=== PATIENT | female | born 1980 | race Two or more races ===

== ENCOUNTER 2016-10-17 09:40 | Emergency (ER) | payer OTHER ==
[~2016-10-17] VITALS: Ht 162.6 cm; Wt 63.5 kg
[2016-10-17 09:45] VITALS: BP 122/73
[2016-10-17] MEDS ORDERED: HYDROcodone/APAP 5/325MG 1 TAB TABLET PO ONE (10:15)
[2016-10-17] MEDS ORDERED: NEOMY/BACITR/POLYMYXIN OINT PACKET. TP ONE (10:15)
[2016-10-17] MEDS ORDERED: DIPHTH,PERTUSS(ACELL),TET TOX 0.5 ML DISP.SYRIN. VAX IM ONE (10:15)
--- NOTE | 2016-10-17 10:20 | PHYS DOC ---
Past Medical History Past Medical History: Gallstones Past Surgical History: Other Additional Past Surgical Histo: gallstone removal Alcohol Use: Occasionally Drug Use: None Adult General Chief Complaint Chief Complaint: BURN/SMOKE INHALATION HPI HPI Patient is a 36 year old female presents emergency department stating that she was burned her left forearm today while she was at work. She has not sure what was coming off of the exhaust area at work that it came down on the chills and hit her left forearm and hand. Patient states that she turned around and fell and injured her left knee. Patient has been able to ambulate without difficulty. She does state that her tetanus shot was approximately 5 years ago. Patient denies any numbness or tingling to her hands or to her foot. Patient does have first-degree moura noted on her left forearm and the back side of her hand. No blistering noted. Patient does have bruising noted on the left knee area with tenderness and discomfort noted patient states that she does have arthritic problems and takes hydrocodone. Review of Systems Review of Systems Constitutional: Denies fever or chills [] Eyes: Denies change in visual acuity, redness, or eye pain [] HENT: Denies nasal congestion or sore throat [] Respiratory: Denies cough or shortness of breath [] Cardiovascular: No additional information not addressed in HPI [] GI: Denies abdominal pain, nausea, vomiting, bloody stools or diarrhea [] : Denies dysuria or hematuria. Musculoskeletal: Denies back pain, complaint of left knee pain Integument: Denies rash or skin lesions. Complaint of moura to the left forearm and hand. Neurologic: Denies headache, focal weakness or sensory changes [] Endocrine: Denies polyuria or polydipsia [] Current Medications Current Medications Current Medications Medications (Trade) Dose Ordered Sig/Rehana Start Time Stop Time Status Last Admin Dose Admin Acetaminophen/ Hydrocodone Bitart (Lortab 5/325) 2 tab 1X ONCE 10/17/16 10:15 10/17/16 10:16 DC 10/17/16 10:29 2 TAB Diphtheria/ Tetanus/Acell Pertussis (Boostrix) 0.5 ml ONCE ONCE 10/17/16 10:15 10/17/16 10:16 DC 10/17/16 10:30 0.5 ML Neomycin/ Polymyxin/ Bacitracin (Triple Antibiotic Ointment) 6 pkt 1X ONCE 7/30/17 10:15 10/17/16 10:16 DC 10/17/16 10:29 6 PKT Allergies Allergies Allergies Coded Allergies Type Severity Reaction Last Updated Verified No Known Drug Allergies 10/13/13 No Physical Exam Physical Exam Constitutional: Well developed, well nourished, no acute distress, non-toxic appearance. [] HENT: Normocephalic, atraumatic, bilateral external ears normal, oropharynx moist, no oral exudates, nose normal. [] Eyes: PERRLA, EOMI, conjunctiva normal, no discharge. [] Neck: Normal range of motion, no tenderness, supple, no stridor. [] Cardiovascular:Heart rate regular rhythm, no murmur [] Lungs & Thorax: Bilateral breath sounds clear to auscultation [] Skin: Warm, dry, no erythema, no rash. Left forearm with first-degree moura noted sporadically on the forearm. Patient with first degree moura noted over the MIP joints 2 through 5. No blistering noted. Left hand with less than 2 second cap refill. Radial pulses 2+. Back: No tenderness Extremities: Left knee tenderness, bruising noted over the left knee as well as abrasions. No cyanosis, no clubbing, ROM intact, no edema. Peripheral pulses 2+ cap refill brisk less than 2 seconds. Patient is able to move the knee with no difficulty. Neurologic: Alert and oriented X 3, normal motor function, normal sensory function, no focal deficits noted. [] Psychologic: Affect normal, judgement normal, mood normal. [] Current Patient Data Vital Signs Vital Signs Date Time Temp Pulse Resp B/P (MAP) Pulse Ox O2 Delivery O2 Flow Rate FiO2 10/17/16 10:29 16 10/17/16 09:45 98.3 75 122/73 (89) 98 Room Air 98.3 EKG EKG [] Radiology/Procedures Radiology/Procedures [][facility] [address] [place], [place] [id number] IMAGING REPORT Signed PATIENT: ANDRES HERNANDEZ ACCOUNT: [id number] : 1980 LOCATION: ER AGE: 36 SEX: F EXAM STATUS: PRE ER ORD. PHYSICIAN: JOSE DAVID JARAMILLO APRN REASON: left knee pain with bruising after falling PROCEDURE: KNEE LEFT 4V 4 view study of the left knee Indications: Left knee pain and swelling and bruising after slipping and falling onto left knee. Findings: No acute fracture or dislocation or osteolytic process is seen. There is no significant swelling of the suprapatellar bursa to indicate a joint effusion radiographically. The patella is normally aligned. No significant arthritic change is seen. IMPRESSION: No acute osseous abnormality. DICTATED and SIGNED BY: RG ARRIAGA MD DATE: 10/17/16 1032 CC: JOSE DAVID JARAMILLO APRN; [address] ~ Course & Med Decision Making Course & Med Decision Making Pertinent Labs and Imaging studies reviewed. (See chart for details) Patient will be updated with a tetanus immunization here in the emergency department. She'll be provided with hydrocodone for pain and discomfort and she states she has not taken her hydrocodone since last night. Patient will also have an x-ray completed of the left knee. X-rays are negative for any bony abnormalities. Patient will be discharged home with recommendations to clean the forearm with soap and water and apply antibiotic ointment twice a day. Patient has hydrocodone at home in which she can take for pain and discomfort. Also recommended continue to use her meloxicam in which she has at home. Hours with food. Recommended ice packs on 20 minutes off 20 minutes several times a day. Recommended ice packs to the left knee as well. Patient will be provided with an Arturo wrap for the left knee. Recommended following up with work comp for any further issues. Patient will be discharged home in stable condition signs and symptoms to return back to emergency department been provided. [] Dragon Disclaimer Dragon Disclaimer This electronic medical record was generated, in whole or in part, using a voice recognition dictation system. Departure Departure Impression: Primary Impression: First degree burn of left forearm Additional Impression: Contusion of left knee Disposition: HOME, SELF-CARE Condition: STABLE Referrals: [address] (PCP) Patient Instructions: Burn Care, [id number], Contusion, [id number] Additional Instructions: In regards to your burn keep the area clean and dry. Clean the site twice daily with soap and water and apply antibiotic ointment. For the left knee ice packs on 20 minutes off 20 minutes several times a day. Elevation as much as possible. Arturo wrap for the next 5-7 days. You have hydrocodone at home in which she can take for pain and discomfort. He may continue to use her meloxicam at you have at home for pain and discomfort as well. Follow-up with work comp physician in the next week. Return back to emergency prior signs symptoms of become worse. Problem Qualifiers JOSE DAVID JARAMILLO APRN Oct 17, 2016 10:20
--- NOTE | 2016-10-17 10:36 | RAD ---
4 view study of the left knee Indications: Left knee pain and swelling and bruising after slipping and falling onto left knee. Findings: No acute fracture or dislocation or osteolytic process is seen. There is no significant swelling of the suprapatellar bursa to indicate a joint effusion radiographically. The patella is normally aligned. No significant arthritic change is seen. IMPRESSION: No acute osseous abnormality.
== END 2016-10-17 10:59 | disposition home or self-care (01) ==
LOC: ER 09:40
DX: T22.112A Burn of first degree of left forearm, initial encounter (principal); S80.02XA Contusion of left knee, initial encounter; X30.XXXA Exposure to excessive natural heat, initial encounter; Y93.89 Activity, other specified; Y99.0 Civilian activity done for income or pay; Y92.69 Other specified industrial and construction area as the place of occurrence of the external cause
CPT/HCPCS: 16000; 16020; 73564; 90471; 90715; 99284-25; 99285-25

== ENCOUNTER 2017-03-09 23:17 | Emergency (ER) | payer OTHER ==
[~2017-03-09] VITALS: Ht 162.6 cm; Wt 67.1 kg
--- NOTE | 2017-03-09 23:40 | PHYS DOC ---
Past Medical History Past Medical History: Gallstones, Ovarian Cyst Past Surgical History: Cholecystectomy, Tubal ligation Alcohol Use: Occasionally Drug Use: None Adult General Chief Complaint Chief Complaint: ABDOMINAL PAIN HPI HPI Patient is a 37 year old female presenting to the emergency department for evaluation of severe left lower quadrant pain that worsened suddenly several hours prior to arrival. She has been dealing with this pain for at least 3 weeks and says that she was seen at [facility] last Tuesday. She says that she has some diarrhea but no fevers chills nausea vomiting dysuria hematuria vaginal bleeding or vaginal discharge. She reports getting both a CT scan and ultrasound and it revealed a large cyst on the right and 2 cyst on the left as well that were smaller. 03/03/2017 2 02/28/2017 HYDROCODON-ACETAMINOPH 7.5-325 20.0 5 RY GED [id number] [facility] ([id number]) 0 30.0 Medicaid [place] 02/14/2017 1 02/14/2017 HYDROCODON-ACETAMINOPH 7.5-325 90.0 23 SI [place]LEST[place] [id number] [facility] ([id number]) 0 29.348 Comm Ins [place] 01/24/2017 1 01/24/2017 HYDROCODON-ACETAMINOPH 7.5-325 90.0 23 SI CELESTINO [id number] [facility] ([id number]) 0 29.348 [place] 01/17/2017 3 01/17/2017 HYDROCODON-ACETAMINOPHEN 5-325 7.0 30 MA TIN [id number] [facility] ([id number]) 0 1.167 Comm [facility] 01/13/2017 3 01/13/2017 HYDROCODON-ACETAMINOPHEN 5-325 10.0 3 BR HOW [id number] [facility] (8285) 0 16.667 [place] 12/21/2016 1 12/21/2016 HYDROCODON-ACETAMINOPH 7.5-325 120.0 30 SI CELESTINO [id number] [facility] ([id number]) 0 30.0 [place] 11/25/2016 1 11/25/2016 HYDROCODON-ACETAMINOPH 7.5-325 120.0 30 SI CELESTINO [id number] [facility] ([id number]) 0 30.0 Comm [facility] Review of Systems Review of Systems Constitutional: Denies fever or chills [] Eyes: Denies change in visual acuity, redness, or eye pain [] HENT: Denies nasal congestion or sore throat [] Respiratory: Denies cough or shortness of breath [] Cardiovascular: No additional information not addressed in HPI [] GI: + abdominal pain. No nausea, vomiting, bloody stools. + diarrhea [] : Denies dysuria or hematuria [] Musculoskeletal: Denies back pain or joint pain [] Integument: Denies rash or skin lesions [] Neurologic: Denies headache, focal weakness or sensory changes [] All other systems were reviewed and found to be within normal limits, except as documented in this note. Current Medications Current Medications Current Medications Medications (Trade) Dose Ordered Sig/Rehana Start Time Stop Time Status Last Admin Dose Admin Fentanyl Citrate (Fentanyl 2ml Vial) 75 mcg 1X ONCE 03/10/17 00:00 03/10/17 00:01 DC 03/10/17 00:17 75 MCG Ketorolac Tromethamine (Toradol) 15 mg 1X ONCE 03/10/17 00:00 03/10/17 00:01 DC 03/10/17 00:17 15 MG Morphine Sulfate 5 mg 1X ONCE 03/10/17 02:15 03/10/17 02:16 DC 03/10/17 02:10 5 MG Ondansetron HCl (Zofran) 4 mg 1X ONCE 03/10/17 00:00 03/10/17 00:01 DC 03/10/17 00:16 4 MG Allergies Allergies Allergies Coded Allergies Type Severity Reaction Last Updated Verified No Known Drug Allergies 10/13/13 No Physical Exam Physical Exam Constitutional: Well developed, well nourished, no acute distress, non-toxic appearance. [] HENT: Normocephalic, atraumatic, bilateral external ears normal, oropharynx moist, no oral exudates, nose normal. [] Eyes: PERRLA, EOMI, conjunctiva normal, no discharge. [] Neck: Normal range of motion, no tenderness, supple, no stridor. [] Cardiovascular:Heart rate regular rhythm, no murmur [] Lungs & Thorax: Bilateral breath sounds clear to auscultation [] Abdomen: Bowel sounds normal, soft, positive left lower quadrant tenderness, tenderness appears to be more so over the left adnexa, no masses, no pulsatile masses. [] Skin: Warm, dry, no erythema, no rash. [] Back: No tenderness, no CVA tenderness. [] Extremities: No tenderness, no cyanosis, no clubbing, ROM intact, no edema. [] Neurologic: Alert and oriented X 3, normal motor function, normal sensory function, no focal deficits noted. [] Current Patient Data Vital Signs Vital Signs Date Time Temp Pulse Resp B/P (MAP) Pulse Ox O2 Delivery O2 Flow Rate FiO2 03/10/17 02:29 70 18 107/54 (71) 98 Room Air 03/09/17 23:23 98.5 98.5 Lab Values Laboratory Tests Test 03/09/17 23:25 03/09/17 23:30 03/09/17 23:38 Urine Collection Type Unknown Urine Color Yellow Urine Clarity Clear Urine pH 6.0 Urine Specific Bethany 1.015 Urine Protein Negative mg/dL (NEG-TRACE) Urine Glucose (UA) Negative mg/dL (NEG) Urine Ketones (Stick) Negative mg/dL (NEG) Urine Blood Trace (NEG) Urine Nitrite Negative (NEG) Urine Bilirubin Negative (NEG) Urine Urobilinogen Dipstick 0.2 mg/dL (0.2 mg/dL) Urine Leukocyte Esterase Trace (NEG) Urine RBC 1-2 /HPF (0-2) Urine WBC 1-4 /HPF (0-4) Urine Squamous Epithelial Cells Mod /LPF Urine Bacteria Few /HPF (0-FEW) White Blood Count 10.8 x10^3/uL (4.0-11.0) Red Blood Count 4.39 x10^6/uL (3.50-5.40) Hemoglobin 13.1 g/dL (12.0-15.5) Hematocrit 39.9 % (36.0-47.0) Mean Corpuscular Volume 91 fL (79-100) Mean Corpuscular Hemoglobin 30 pg (25-35) Mean Corpuscular Hemoglobin Concent 33 g/dL (31-37) Red Cell Distribution Width 12.7 % (11.5-14.5) Platelet Count 201 x10^3/uL (140-400) Neutrophils (%) (Auto) 62 % (31-73) Lymphocytes (%) (Auto) 28 % (24-48) Monocytes (%) (Auto) 7 % (0-9) Eosinophils (%) (Auto) 2 % (0-3) Basophils (%) (Auto) 0 % (0-3) Neutrophils # (Auto) 6.7 x10^3uL (1.8-7.7) Lymphocytes # (Auto) 3.0 x10^3/uL (1.0-4.8) Monocytes # (Auto) 0.8 x10^3/uL (0.0-1.1) Eosinophils # (Auto) 0.2 x10^3/uL (0.0-0.7) Basophils # (Auto) 0.0 x10^3/uL (0.0-0.2) Sodium Level 141 mmol/L (136-145) Potassium Level 3.4 mmol/L (3.5-5.1) L Chloride Level 103 mmol/L (98-107) Carbon Dioxide Level 26 mmol/L (21-32) Anion Gap 12 (6-14) Blood Urea Nitrogen 18 mg/dL (7-20) Creatinine 0.8 mg/dL (0.6-1.0) Estimated GFR (Cockcroft-Gault) 80.7 BUN/Creatinine Ratio 23 (6-20) H Glucose Level 89 mg/dL (70-99) Calcium Level 9.1 mg/dL (8.5-10.1) Magnesium Level 2.2 mg/dL (1.8-2.4) Total Bilirubin 0.3 mg/dL (0.2-1.0) Aspartate Amino Transferase (AST) 16 U/L (15-37) Alanine Aminotransferase (ALT) 16 U/L (14-59) Alkaline Phosphatase 71 U/L (46-116) Total Protein 8.4 g/dL (6.4-8.2) H Albumin 4.2 g/dL (3.4-5.0) Albumin/Globulin Ratio 1.0 (1.0-1.7) Lipase 190 U/L (73-393) POC Urine HCG, Qualitative Hcg negative (Negative) Laboratory Tests 03/09/17 23:30 Laboratory Tests 03/09/17 23:30 EKG EKG [] Radiology/Procedures Radiology/Procedures [] Course & Med Decision Making Course & Med Decision Making Certainly given her history of ovarian torsion is more of a concern at this point so she will get a pelvic ultrasound treat symptoms and reassess. Will transfer care to Dr. Kaiser at midnight and have her go over the results of the tests. US did not show ovarian torsion or cyst. pt states she had cyst on left. no cyst today so most likely rupture. pt initially asked for pain meds for home but I reminded her that she filled 90 hydrocodone on 02/13 and another 20 on . she receives 120 monthly and can refill with her doctor Keyshawn Disclaimer Keyshawn Disclaimer This electronic medical record was generated, in whole or in part, using a voice recognition dictation system. Departure Departure Impression: Primary Impression: Abdominal pain Disposition: HOME, SELF-CARE Condition: GOOD Referrals: [address] (PCP) Patient Instructions: Ovarian Cyst Additional Instructions: return if persistant pain, vomiting, fever, or any other concerns. call your doctor for follow-up in 1 week. continue using your hydrocodone for pain Problem Qualifiers Primary Impression: Abdominal pain Abdominal location: left lower quadrant Qualified Codes: R10.32 - Left lower quadrant pain DAVEY PITTMAN DO Mar 09, 2017 23:40 ARIANA KAISER MD Mar 10, 2017 02:03
[2017-03-09 23:47] LABS: BILIRUBIN,URINE NEGATIVE (NEG); GLUCOSE,URINE NEGATIVE (NEG); NITRITE,URINE NEGATIVE (NEG); PROTEIN,URINE NEGATIVE (NEG-TRACE); UROBILINOGEN,URINE 0.2 mg/dL (0.2 mg/dL)
[2017-03-09 23:54] LABS: BASO % 0 % (0-3); EOS % 2 % (0-3); HEMATOCRIT 39.9 % (36.0-47.0); HEMOGLOBIN 13.1 g/dL (12.0-15.5); LYMPH % 28 % (24-48); MEAN CORPUSCULAR HEMOGLOBIN 30 pg (25-35); MEAN CORPUSCULAR HGB CONC 33 g/dL (31-37); MEAN CORPUSCULAR VOLUME 91 fL (79-100); MONO % 7 % (0-9); NEUT % 62 % (31-73); PLATELET COUNT 201 x10^3/uL (140-400); RED BLOOD COUNT 4.39 x10^6/uL (3.50-5.40); RED CELL DISTRIBUTION WIDTH 12.7 % (11.5-14.5); WHITE BLOOD COUNT 10.8 x10^3/uL (4.0-11.0)
[2017-03-09 23:57] LABS: BACTERIA,URINE FEW /HPF (0-FEW); SQUAMOUS EPITHELIAL CELL,UR MOD /LPF
[2017-03-10] MEDS ORDERED: ONDANSETRON PF 4 MG/2 ML VIAL. IV ONE
[2017-03-10] MEDS ORDERED: KETOROLAC 15 MG/ML VIAL. IV ONE
[2017-03-10] MEDS ORDERED: fentaNYL PF VIAL 100 MCG/2 ML VIAL IV ONE
[2017-03-10 00:04] LABS: CALCIUM 9.1 mg/dL (8.5-10.1); CREATININE 0.8 mg/dL (0.6-1.0); GFR 80.7; POTASSIUM 3.4 mmol/L (3.5-5.1)
[2017-03-10 00:09] LABS: ALBUMIN 4.2 g/dL (3.4-5.0); MAGNESIUM 2.2 mg/dL (1.8-2.4); TOTAL BILIRUBIN 0.3 mg/dL (0.2-1.0); TOTAL PROTEIN 8.4 g/dL (6.4-8.2)
--- NOTE | 2017-03-10 01:34 | RAD ---
EXAM: PELVIC ULTRASOUND. HISTORY: Left pelvic pain for 3 hours. COMPARISON: October 13, 2013. FINDINGS: Sonographic evaluation of the pelvis was performed transabdominally and transvaginally. The uterus is anteverted and measures 8.6 x 4.0 x 5.5 cm. The endometrial stripe measures 14 mm. There is trace endometrial fluid. A small exophytic fibroid along the left aspect of the fundus measures 10 x 8 mm. There is no significant free fluid. There are small cysts along the cervix. The right ovary measures 3.3 x 2.0 x 1.4 cm. The left ovary measures 1.7 x 1.7 x 1.2 cm. There is normal Doppler flow bilaterally. There are no suspicious lesions. There are prominent pelvic veins on the left. IMPRESSION: 1. No cause for acute pain is identified. No evidence of torsion. 2. Prominent left adnexal veins may be a normal finding, but correlate for pelvic venous congestion. Electronically signed by: Temitope Noel MD (03/10/2017 1:31 AM) [facility]
[2017-03-10] MEDS ORDERED: MORPHINE SULFATE 10 MG/ML VIAL. IV ONE (02:15)
[2017-03-10 02:29] VITALS: BP 107/54
== END 2017-03-10 02:31 | disposition home or self-care (01) ==
LOC: ER 23:17
DX: R10.32 Left lower quadrant pain (principal); R19.7 Diarrhea, unspecified; Z98.51 Tubal ligation status; Z90.49 Acquired absence of other specified parts of digestive tract
CPT/HCPCS: 36415; 76830; 76856; 80053; 81001; 81025; 83690; 83735; 85025; 87086; 96374; 96375; 99285; J1885; J2270; J2405; J3010

== ENCOUNTER 2020-11-13 15:35 | Emergency (ER) | payer OTHER ==
[~2020-11-13] VITALS: Ht 162.6 cm; Wt 65.0 kg
[2020-11-13 15:58] VITALS: BP 104/52
--- NOTE | 2020-11-13 16:31 | RAD ---
EXAM: Left ankle, 3 views. HISTORY: Pain and swelling. COMPARISON: None. FINDINGS: 3 views of the left ankle are obtained. There is no fracture, dislocation or subluxation. T he ankle mortise is intact. There is no occult lesion. There is diffuse medial predominant ankle and hindfoot soft tissue swelling. IMPRESSION: Soft tissue swelling. No acute osseous finding. Electronically signed by: Yessi Martinez MD (11/13/2020 4:28 PM) [id number]
--- NOTE | 2020-11-13 16:50 | PHYS DOC ---
Past Medical History Past Medical History: Gallstones, Ovarian Cyst (JODI SANCHEZ [employer]) Past Surgical History: Cholecystectomy, Tubal ligation Additional Past Surgical Histo: gallstone removal (JODI SANCHEZ [employer]) Smoking Status: Current Every Day Smoker Alcohol Use: None Drug Use: None (JODI SANCHEZ [employer]) General Adult EDM: Chief Complaint: ANKLE PROBLEM HPI: HPI: Patient is a 40 year old female who presents to the ED today complaining of 8 out of 10 left ankle pain and swelling, pain described as sharp and constant worse on weightbearing, symptoms for 3 to 4 days. Patient denies any injuries. She states today she was unable to put weight on the left lower extremity due to the pain. Patient denies any numbness or tingling to the left lower extremity. Denies anything specifically relieving her pain. (JODI SANCHEZ [employer]) Review of Systems: Review of Systems: Constitutional: Denies fever or chills. [] Musculoskeletal: Reports left ankle pain. Denies back pain Integument: Denies rash. [] Neurologic: Denies headache, focal weakness or sensory changes. [] ] Psychiatric: Denies depression or anxiety. [] (AGGIEJODI Modi [employer]) Heart Score: C/O Chest Pain: N/A Risk Factors: Risk Factors: DM, Current or recent (<one month) smoker, HTN, HLP, family history of CAD, obesity. Risk Scores: Score 0 - 3: 2.5% MACE over next 6 weeks - Discharge Home Score 4 - 6: 20.3% MACE over next 6 weeks - Admit for Clinical Observation Score 7 - 10: 72.7% MACE over next 6 weeks - Early Invasive Strategies (JODI SANCHEZ [employer]) Allergies: Allergies: Allergies Coded Allergies Type Severity Reaction Last Updated Verified No Known Drug Allergies 10/13/13 No (LAURENELADIAJODI Modi [employer]) Physical Exam: PE: Constitutional: Well developed, well nourished, no acute distress, non-toxic appearance. [] Skin: Warm, dry, no erythema, no rash. [] Back: No tenderness, no CVA tenderness. [] Extremities: Left ankle with no obvious deformity, mild soft tissue swelling noted on the medial and lateral ankle. Tenderness on palpation diffusely throughout the ankle. Full range of motion to the left foot and toes. +2 left pedal pulse. Cap refill less than 2 seconds to left toes Neurologic: Alert and oriented X 3, normal motor function, normal sensory function, no focal deficits noted. [] Psychologic: Affect normal, judgement normal, mood normal. [] (JODI SANCHEZ APRN) Current Patient Data: Labs: Laboratory Tests Test 11/13/20 16:00 POC Urine HCG, Qualitative Hcg negative (Negative) Vital Signs: Vital Signs Date Time Temp Pulse Resp B/P (MAP) Pulse Ox O2 Delivery O2 Flow Rate FiO2 11/13/20 15:58 98.4 81 20 104/52 (71) 81 Room Air 98.4 (JODI SANCHEZ APRN) EKG: EKG: [] (JODI SANCHEZ APRN) Radiology/Procedures: Radiology/Procedures: []PROCEDURE: ANKLE LEFT 3V EXAM: Left ankle, 3 views. HISTORY: Pain and swelling. COMPARISON: None. FINDINGS: 3 views of the left ankle are obtained. There is no fracture, dislocation or subluxation. The ankle mortise is intact. There is no occult lesion. There is diffuse medial predominant ankle and hindfoot soft tissue swelling. IMPRESSION: Soft tissue swelling. No acute osseous finding. Electronically signed by: Maryellen Wilkes MD (11/13/2020 4:28 PM) [id number] DICTATED and SIGNED BY: MARYELLEN WILKES MD DATE: 11/13/20 [id number] (JODI SANCHEZ APRN) Course & Med Decision Making: Course & Med Decision Making Pertinent Labs and Imaging studies reviewed. (See chart for details) This is a 40-year-old female patient presented to the ED today with left ankle pain with swelling for 3 days, no known injury. Left ankle x-rays interpreted by radiologist were noted for soft tissue swelling otherwise no acute findings. Arturo wrap and Aircast applied to the left ankle by the ED RN, neurovascular exam done by the RN is intact. Ice elevation encouraged, OTC pain relievers. Follow-up with orthopedic doctor in 1 week (JODI SANCHEZ APRN) Dragon Disclaimer: Dragon Disclaimer: This electronic medical record was generated, in whole or in part, using a voice recognition dictation system. (JODI SANCHEZ APRN) Departure Departure Impression: Primary Impression: Left ankle pain Qualified Codes: M25.572 - Pain in left ankle and joints of left foot Additional Impression: Swelling of left ankle joint Disposition: HOME / SELF CARE / HOMELESS Condition: STABLE Referrals: NO PCP (PCP) ZEENAT LEWIS DO Follow-up in 1 week Patient Instructions: Ankle Pain Additional Instructions: You were evaluated in the emergency room for left ankle pain and swelling. Your left ankle x-rays are negative for any acute findings, you have swelling in the left ankle. We encourage you to keep the Arturo wrap and Aircast provided on the ankle as tolerated. Try to ice and elevate the extremity. Please take ibuprofen or Tylenol for pain. Ibuprofen is a very good anti-inflammatory and will help reduce the swelling. Please follow-up with the provided orthopedic doctor in 1 to 2 weeks if pain persist Attending Signature I have participated in the care of this patient and I have reviewed and agree with all pertinent clinical information above including history, exam, and recommendations. (CHERRY SOLIMAN DO) JODI SANCHEZ APRN Nov 13, 2020 16:50 CHERRY SOLIMAN DO Nov 13, 2020 17:03
== END 2020-11-13 17:17 | disposition home or self-care (01) ==
LOC: ER 15:35
DX: M25.572 Pain in left ankle and joints of left foot (principal); R22.42 Localized swelling, mass and lump, left lower limb; F17.200 Nicotine dependence, unspecified, uncomplicated
CPT/HCPCS: 73610; 81025; 99283; L4350